=== PATIENT | female | born 1965 | race Caucasian/White ===

== ENCOUNTER → 2024-12-14 | Outpatient (CLI) | payer OTHER ==
[2024-12-14 16:32] VITALS: BP 134/86; PULSE 68; RESP 12; TEMP 98.1
--- NOTE | 2024-12-14 17:17 | P.SLEEP ---
History of Present Illness H&P Date: 12/14/24 This is a pleasant 59-year-old female patient who is coming in due to concerns of chronic fatigue and some degree of sleepiness. The patient is concerned of sleep apnea. Noted, the patient has history of snoring and she goes to bed around midnight and she wakes up at 7:00 in the morning. 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 She has to be at work after 830. On weekends, her time to go to bed varies and sometimes she gets up as late as 11 AM in the morning. During routine weekdays, she has difficulties initiating sleep. Sometimes, it takes her more than half an hour to 1 hour to fall asleep. Her sleep is fragmented. She thinks she is averaging around 5 to 6 hours of sleep. She gets anxious. She cannot turn off her brain and is obviously affects her ability to fall asleep. She works as an financial reporting accountant for a [employer] company and it seems that her job is quite busy and somewhat stressful. Over the years, she was given Lexapro and she is maintained on the same medication. She has history of migraines maintained on a combination of Emgality, tramadol and butalbital/acetaminophen. She has also history of hypertension and hyperlipidemia and psoriasis. She was recently given semaglutide and she managed to lose around 25 to 30 pounds and her current body mass index is 26.3. Her Springview score is at 7. She has grinding of the teeth. No naps during the day. No excessive utilization of alcoholic beverages. She takes melatonin in p.m. She has tried Ambien in the past without having good results and ability to initiate sleep. No signs of symptoms of active depression. Review of Systems Constitutional: Reports daytime sleepiness, Reports fatigue, Reports weight loss Eyes: denies as per HPI, denies blurred vision, denies bulging eye, denies decreased vision, denies diplopia, denies discharge, denies dry eye, denies irritation, denies itching, denies pain, denies photophobia, denies loss of peripheral vision, denies loss of vision, denies tunnel vision/blind spots Ears: deny: decreased hearing, ear discharge, earache, tinnitus Ears, nose, mouth and throat: Reports as per HPI Breasts: absent: as per HPI, change in shape, gynecomastia, masses, nipple discharge, pain, skin changes, swelling Cardiovascular: Reports as per HPI Respiratory: Reports snoring Gastrointestinal: Reports as per HPI Genitourinary: Reports as per HPI Musculoskeletal: Reports as per HPI Musculoskeletal: absent: ankle pain, ankle stiffness, ankle swelling, as per HPI, elbow pain, elbow stiffness, elbow swelling, foot pain, foot stiffness, foot swelling, hand pain, hand stiffness, hand swelling, hip pain, hip stiffness, hip swelling, knee pain, knee stiffness, knee swelling, shoulder pain, shoulder stiffness, shoulder swelling, wrist pain, wrist stiffness, wrist swelling Integumentary: Reports as per HPI Neurological: Reports as per HPI Psychiatric: Reports anxiety, Reports change in sleep habits, Reports sleep disturbances Endocrine: Reports as per HPI, Reports fatigue Hematologic/Lymphatic: Reports as per HPI Allergic/Immunologic: Reports as per HPI Past Medical History Past Medical History: Hyperlipidemia, Hypertension History of Any Multi-Drug Resistant Organisms: None Reported Additional Past Surgical History / Comment(s): OVARY REMOVED Past Anesthesia/Blood Transfusion Reactions: No Reported Reaction Past Psychological History: No Psychological Hx Reported Smoking Status: Never smoker Past Alcohol Use History: Occasional Past Drug Use History: None Reported Medications and Allergies Allergies Allergy/AdvReac Type Severity Reaction Status Date / Time Penicillins AdvReac Rash/Hives Unverified 12/14/24 16:34 Physical Exam Vitals: Vital Signs Temp Pulse Resp BP Pulse Ox 12/14/24 16:31 98.1 F 68 12 134/86 99 Intake and Output 12/14/24 12/14/24 12/14/24 06:59 14:59 22:59 Other: Weight 77.111 kg The patient appeared well nourished and normally developed. Vital signs as documented. Body mass index of 26.3 Head exam is unremarkable. No scleral icterus or corneal arcus noted. Neck is without jugular venous distension, thyromegaly, or carotid bruits. Carotid upstrokes are brisk bilaterally. Mallampati class III Lungs are clear to auscultation and percussion. Cardiac exam reveals the PMI to be normally sized and situated. Rhythm is regular. First and second heart sounds normal. No murmurs, rubs or gallops. Abdominal exam reveals normal bowel sounds, no masses, no organomegaly and no aortic enlargement. Extremities are nonedematous and both femoral and pedal pulses are normal. Examination of the skin revealed no evidence of significant rashes, suspicious appearing nevi or other concerning lesions. Neurologically, the patient is awake and alert and the patient does not have any focal neurological deficit. Cranial nerves are essentially intact. Assessment and Plan Plan: Chronic fatigue, with a component of limited sleepiness and an Springview score of 7. Overall impression is consistent with sleep onset/maintenance insomnia, and obstructive sleep apnea is considered to be less likely. Noted the patient has been maintained on Lexapro over the years. She does have poor sleep hygiene measures. At the same time she has taken semaglutide and she has lost around 25 to 30 pounds over this past few years. She is coming in for further investigation. Hypertension Hyperlipidemia Chronic anxiety/questionable depression, maintained on Lexapro over the years with good results Psoriasis Migraines, currently under adequate control. Plan I had a lengthy discussion with the patient. Symptoms are probably related to poor sleep hygiene measures, sleep onset and maintenance insomnia and sleep apnea is considered to be less likely. Will implement good sleep hygiene measures and regulate sleep schedule Will implement cognitive behavioral therapy and restrict number of hours in bed The patient was given a sleep diary No need for hypnotic agents the patient will continue taking her Lexapro Her migraines under good control Continue semaglutide for weight loss Obtain a polysomnography to evaluate the presence of sleep apnea and at the same time evaluate the sleep quality, efficiency and architecture. Will make further recommendations based on the results of the sleep study. Sleep Note - Sleep Data ESS Total: 7 - Sleep Note Sleep Note: Temperature: 98.1 F Pulse Rate: 68 Respiratory Rate: 12 Blood Pressure: 134/86 SpO2: 99 Height: 5 ft 7.5 in Weight: 77.111 kg BMI: Neck Circumference: 12.5
== END ==
LOC: 3 N SLEEP 15:18
PROVIDERS: ATTEND Internal Medicine Critical Care Medicine
DX: G47.33 Obstructive sleep apnea (adult) (pediatric) (principal); I10 Essential (primary) hypertension; E78.5 Hyperlipidemia, unspecified; F41.9 Anxiety disorder, unspecified; F32.A Depression, unspecified; L40.9 Psoriasis, unspecified; Z88.0 Allergy status to penicillin
CPT/HCPCS: 99211